=== PATIENT | female | born 1955 | race Caucasian/White ===

== ENCOUNTER → 2018-08-14 | Outpatient (CLI) | payer OTHER ==
[~2018-08-14] MED LIST: BUPIVACAINE MPF 0.25% 10 ML VIAL. ONE
== END | disposition home or self-care (01) ==
LOC: SURG 10:09
PROVIDERS: ATTEND Anesthesiology Pain Medicine
DX: M70.70 Other bursitis of hip, unspecified hip (principal); G89.4 Chronic pain syndrome; E78.00 Pure hypercholesterolemia, unspecified; K21.9 Gastro-esophageal reflux disease without esophagitis; G43.909 Migraine, unspecified, not intractable, without status migrainosus; Z79.891 Long term (current) use of opiate analgesic; Z90.49 Acquired absence of other specified parts of digestive tract; Z98.890 Other specified postprocedural states; Z79.899 Other long term (current) drug therapy; Z88.8 Allergy status to other drugs, medicaments and biological substances
CPT/HCPCS: 20610; 77002; J3490

== ENCOUNTER → 2020-09-15 | Day surgery (SDC) | payer OTHER ==
[~2020-09-15] MED LIST changes: +ATOR40TA59 PO; -BUPIVACAINE MPF 0.25% 10 ML VIAL. ONE; +DULO60CA98 PO; +GLYCOPYRROLATE 1 MG/5 ML VIAL. ONE; +IPRATRPIUM/ALBUTEROL 0.5/2.5MG 3 ML NEBU. NEB PRN; +IV RINGERS SOLUTION,LACTATED 1,000 ML IV SCH; +LEVO25TA4 PO; +LIDOCAINE 2% PF 5 ML VIAL. ONE; +METO50TA29 PO; +MIDAZOLAM HCL PF 2 MG/2 ML VIAL. IV ONE; +NAPR220C4 PO; +OMEP20CA16 PO; +ONDANSETRON PF 4 MG/2 ML VIAL. IV PRN; +PROPOFOL 10,000 MCG/ML (20ML) VIAL IV ONE; +SODIUM PHOSPHATES 19/7GM 133 ML ENEMA. PR ONE; +TIZA4TAB2 PO; +TRAZ-125 PO; +vitamin d3 PO
[2020-09-15 12:53] VITALS: BP 145/70
== END | disposition home or self-care (01) ==
LOC: SURG 10:26
PROVIDERS: ATTEND Internal Medicine Gastroenterology
DX: R19.7 Diarrhea, unspecified (principal); R13.10 Dysphagia, unspecified; R12 Heartburn; K57.30 Diverticulosis of large intestine without perforation or abscess without bleeding; K22.2 Esophageal obstruction; K64.0 First degree hemorrhoids; K63.5 Polyp of colon; K44.9 Diaphragmatic hernia without obstruction or gangrene; K29.70 Gastritis, unspecified, without bleeding; G43.909 Migraine, unspecified, not intractable, without status migrainosus; E66.9 Obesity, unspecified; I10 Essential (primary) hypertension; E78.00 Pure hypercholesterolemia, unspecified; E07.9 Disorder of thyroid, unspecified; K21.9 Gastro-esophageal reflux disease without esophagitis; G47.33 Obstructive sleep apnea (adult) (pediatric); F32.9 Major depressive disorder, single episode, unspecified; Z80.0 Family history of malignant neoplasm of digestive organs; Z88.8 Allergy status to other drugs, medicaments and biological substances; Z79.899 Other long term (current) drug therapy; Z90.49 Acquired absence of other specified parts of digestive tract; Z87.891 Personal history of nicotine dependence; Z98.890 Other specified postprocedural states; Z72.89 Other problems related to lifestyle
CPT/HCPCS: 43239; 43450; 45380; J2001; J2704; J3490; J7120